=== PATIENT | female | born 1970 | race American Indian/Alaskan Native ===

== ENCOUNTER 2019-05-09 14:57 | Outpatient (CLI) | payer MEDICAID ==
--- NOTE | 2019-05-09 15:32 | XRay Report ---
RIGHT KNEE, 3 VIEWS INDICATION: DECREASED ROM. Pain. COMPARISON: None. IMPRESSION: Mild medial compartment joint space narrowing and mild retropatellar spurring is identif ied. No evidence for fracture, bone lesion or joint effusion. Normal bone mineralization. Signer Name: El Bergman Jr, MD Signed: 05/09/2019 3:28 PM Workstation Name: [id number]
== END 2019-05-09 14:58 | disposition home or self-care (01) ==
LOC: SPVIMAG 14:57
PROVIDERS: ATTEND Internal Medicine Hematology & Oncology
DX: M25.561 Pain in right knee (principal); C50.111 Malignant neoplasm of central portion of right female breast; I10 Essential (primary) hypertension